=== PATIENT | male | born 1975 | race Caucasian/White ===

== ENCOUNTER 2023-01-02 14:49 | Outpatient (CLI) | payer BC, SELFPAY | END 2023-01-02 14:50 | disposition home or self-care (01) | PROVIDERS: PCP Internal Medicine; Visit Provider Internal Medicine | DX: Z13.6 Encounter for screening for cardiovascular disorders (principal); Z13.9 Encounter for screening, unspecified | CPT/HCPCS: 80053; 80061 ==

== ENCOUNTER 2023-05-04 09:34 | Outpatient (CLI) | payer BC, SELFPAY ==
--- NOTE | 2023-05-04 07:56 | W.ANESCHARGE ---
Anesthesia Charges Start Date/Time Anesthesia Start Date: 05/04/23 Anesthesia Start Time: 10:05 Stop Date/Time Anesthesia Stop Date: 05/04/23 Anesthesia Stop Time: 10:43
--- NOTE | 2023-05-04 10:45 | W.ANESCHARGE ---
Anesthesia Charges Start Date/Time Anesthesia Start Date: 05/04/23 Anesthesia Start Time: 10:05 Stop Date/Time Anesthesia Stop Date: 05/04/23 Anesthesia Stop Time: 10:43
== END 2023-05-04 09:35 | disposition home or self-care (01) ==
LOC: OP CLINIC 09:36
PROVIDERS: PCP Internal Medicine; Visit Provider Internal Medicine
DX: Z12.11 Encounter for screening for malignant neoplasm of colon (principal); K63.5 Polyp of colon
CPT/HCPCS: 00811; 45380; 88305; J2704

== ENCOUNTER 2025-01-22 15:31 | Outpatient (CLI) | payer BC, SELFPAY | END 2025-01-22 15:32 | disposition home or self-care (01) | LOC: NFLDREF 15:35 | PROVIDERS: PCP Internal Medicine; Visit Provider Internal Medicine | DX: J34.89 Other specified disorders of nose and nasal sinuses (principal) | CPT/HCPCS: 80048 ==

== ENCOUNTER 2025-02-13 07:46 | Outpatient (CLI) | payer BC, SELFPAY ==
--- NOTE | 2025-02-13 08:00 | CRLHL7_ITS ---
For Patients: As a result of the Century Cures Act, medical imaging exams and procedure reports are released immediately into your electronic medical record. You may view this report before your referring provider. If you have questions, please contact your health care provider. Indication: Sinus pressure. Technique: Noncontrast axial CT of the paranasal sinuses with coronal reformats are provided. No comparisons. Findings: Moderate mucosal thickening within the left frontal ethmoidal recess. Trace mucosal thickening within the maxillary sinuses. The remainder of the visualized paranasal sinuses are clear. The ostiomeatal complexes are patent bilaterally. The visualized intraorbital contents appear within normal limits. Impression: 1. Moderate inflammatory change within the left frontal ethmoidal recess. 2. Trace inflammatory changes within the maxillary sinuses. 3. Otherwise, unremarkable CT of the paranasal sinuses. Please note that all CT scans at this facility use dose modulation, iterative reconstruction, and/or weight-based dosing when appropriate to reduce radiation dose to as low as reasonably achievable. Dictated by Sher Brown MD @ 02/13/2025 3:45:17 PM (Electronically Signed)
== END 2025-02-13 07:47 | disposition home or self-care (01) ==
LOC: CT 07:47
PROVIDERS: PCP Internal Medicine; Visit Provider Internal Medicine
DX: J34.89 Other specified disorders of nose and nasal sinuses (principal); J32.1 Chronic frontal sinusitis; J32.0 Chronic maxillary sinusitis
CPT/HCPCS: 70486